=== PATIENT | female | born 1970 | race American Indian/Alaskan Native ===

== ENCOUNTER 2016-08-03 07:08 | Emergency (ER) | payer MEDICAID, MEDICARE ==
[~2016-08-03 07:08] MED LIST: ADRENALIN ONE; D50W (25GM) IV ONE
--- NOTE | 2016-08-03 07:25 | Emergency Department Report ---
ED CPR HPI - General Stated Complaint: CARDIAC ARREST Time Seen by Provider: 08/03/16 07:17 Source: EMS Mode of arrival: Stretcher Limitations: Other (patient unconscious) - History of Present Illness MD Complaint: other (collapsed while getting a breathing treatment) Time: 06:30 Place: [facility] Bystander CPR Performed: Yes AED Applied by Bystander/Wire Drawer: Yes Shock Advised: Yes Number of Shocks Delivered: 1 Downtime Before ACLS Arrival (mins): 10 Initial Findings in the Field: unresponsive, PEA (and then went to V. fib and was fibrillated. Patient then was in asystole) ROSC in the Field: No Associated Symptoms: shortness of breath Treatments Prior to Arrival: epinephrine mgs # (2), sodium bicarbonate, calcium , other (Accu-Chek was 112) - Related Data Home Medications Medication Instructions Recorded Confirmed Last Taken ALBUTEROL NEB's [Proventil 0.083% 2.5 mg INHALATION BID 06/26/16 06/26/16 Unknown NEBS] Insulin Glargine [Lantus VIAL] 50 units SUB-Q QHS 06/26/16 06/26/16 Unknown Insulin Glulisine [Apidra] 12 units SUB-Q AC 06/26/16 06/26/16 Unknown Previous Rx's Medication Instructions Recorded Last Taken Type Docusate Sodium [Colace CAP] 100 mg PO BID #60 capsule 02/10/16 Unknown Rx Furosemide [Lasix TAB] 40 mg PO QDAY #30 tablet 02/10/16 Unknown Rx Gabapentin [Gralise] 300 mg PO DAILY #30 tab.er.24h 02/10/16 Unknown Rx Venlafaxine [Effexor] 37.5 mg PO BID #30 tablet 02/10/16 Unknown Rx Levofloxacin [Levaquin TAB] 500 mg PO QDAY #3 tablet 06/30/16 Unknown Rx Allergies Allergy/AdvReac Type Severity Reaction Status Date / Time prednisone AdvReac Unknown Verified 02/09/15 13:31 ED Review of Systems ROS: Stated complaint: CARDIAC ARREST Other details as noted in HPI Comment: Unobtainable due to pts medical conditions (unresponsive) ED Past Medical Hx - Past Medical History Hx Hypertension: Yes Hx Congestive Heart Failure: Yes Hx Diabetes: Yes Hx Renal Disease: Yes Hx Asthma: Yes (secretions. Hypoxic and hypercapnic but improved.) Hx COPD: Yes (Respiratory failure on this admission -> Trached) Additional medical history: anemia , morbid obesity - Surgical History Past Surgical History?: Yes Additional Surgical History: foot surgery, tracheostomy - Social History Smoking Status: Former Smoker - Medications Home Medications: Home Medications Medication Instructions Recorded Confirmed Last Taken Type Docusate Sodium [Colace CAP] 100 mg PO BID #60 capsule 02/10/16 06/26/16 Unknown Rx Furosemide [Lasix TAB] 40 mg PO QDAY #30 tablet 02/10/16 06/26/16 Unknown Rx Gabapentin [Gralise] 300 mg PO DAILY #30 tab.er.24h 02/10/16 06/26/16 Unknown Rx Venlafaxine [Effexor] 37.5 mg PO BID #30 tablet 02/10/16 06/26/16 Unknown Rx ALBUTEROL NEB's [Proventil 0.083% 2.5 mg INHALATION BID 06/26/16 06/26/16 Unknown History NEBS] Insulin Glargine [Lantus VIAL] 50 units SUB-Q QHS 06/26/16 06/26/16 Unknown History Insulin Glulisine [Apidra] 12 units SUB-Q AC 06/26/16 06/26/16 Unknown History Levofloxacin [Levaquin TAB] 500 mg PO QDAY #3 tablet 06/30/16 Unknown Rx ED Physical Exam - General Limitations: Other (unconscious) General appearance: other (middose) - Head Head exam: Present: atraumatic - Eye Eye exam: Present: other (was fixed and dilated) - Neck Neck exam: Present: other (tracheostomy in place) - Respiratory Respiratory exam: Present: other (no respiratory effort) - Cardiovascular Cardiovascular Exam: Present: other (no heart sounds) - GI/Abdominal GI/Abdominal exam: Present: other (morbidly obese) - Rectal Rectal exam: Present: deferred - Extremities Exam Extremities exam: Present: other (IO and left tibia) - Neurological Exam Neurological exam: Present: other (comatose) - Skin Skin exam: Present: pallor, other (cool) ED Course - Reevaluation(s) Reevaluation #1: 08/03/16 07:27 ACLS was continued without resumption of pulses. Patient was pronounced. Critical care attestation.: If time is entered above; I have spent that time in minutes in the direct care of this critically ill patient, excluding procedure time. ED Disposition Clinical Impression: D.O.A. ( on arrival) Disposition: Is pt being admited?: No Does the pt Need Aspirin: No Condition: Stable Time of Disposition: 07:28
== END 2016-08-03 11:35 ==
LOC: ED 07:08
DX: I46.9 Cardiac arrest, cause unspecified (principal); I10 Essential (primary) hypertension; E11.9 Type 2 diabetes mellitus without complications; I50.9 Heart failure, unspecified; J44.9 Chronic obstructive pulmonary disease, unspecified; J45.909 Unspecified asthma, uncomplicated; E66.01 Morbid (severe) obesity due to excess calories; Z87.891 Personal history of nicotine dependence; Z88.8 Allergy status to other drugs, medicaments and biological substances
CPT/HCPCS: 92950; 99285; J0171